=== PATIENT | male | born 2005 | race Caucasian/White ===

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

== ENCOUNTER 2023-02-24 17:28 | Emergency (ER) | payer OTHER ==
--- NOTE | 2023-02-24 18:49 | ED ---
ENT HPI - General Source: RN notes reviewed <Chelsea Vargas - Last Filed: 02/24/23 18:49> <Nataly Montoya - Last Filed: 02/24/23 21:51> - General Stated complaint: sore throat Time Seen by Provider: 02/24/23 18:49 - History of Present Illness Initial comments: Patient is a 17-year-old male who presents to the emergency department for sore throat. (Chelsea Vargas) 17-year-old male presenting with chief complaint of shortness of breath. Patient states that he has had a cough, congestion, sore throat, body ache, headache, nausea, and vomiting for the last 3 days. Patient has history of asthma, admits to smoking cigarettes and marijuana. Patient states that he ran out of his albuterol inhaler at home and does not have a nebulizer machine. No chest pain, palpitations, abdominal pain, fever. (Nataly Montoya) - Related Data Home Medications Medication Instructions Recorded Confirmed Ibuprofen [Advil Migraine] 600 mg PO Q12H PRN 04/26/21 04/26/21 Previous Rx's Medication Instructions Recorded Ibuprofen [Motrin] 600 mg PO Q8HR PRN #30 tab 08/31/21 Albuterol Inhaler [Ventolin Hfa 1 - 2 puff INHALATION Q6H PRN #1 02/24/23 Inhaler] each Amoxicillin 500 mg PO Q12HR 10 Days #20 cap 02/24/23 predniSONE 50 mg PO DAILY 5 Days #5 tab 02/24/23 Allergies Allergy/AdvReac Type Severity Reaction Status Date / Time mint Allergy Anaphylaxis Verified 02/24/23 19:12 Review of Systems ROS Other: All systems not noted in ROS Statement are negative. <Chelsea Vargas - Last Filed: 02/24/23 18:49> ROS Other: All systems not noted in ROS Statement are negative. <Nataly Montoya - Last Filed: 02/24/23 21:51> ROS Statement: Those systems with pertinent positive or pertinent negative responses have been documented in the HPI. Past Medical History Past Medical History: Asthma, Seizure Disorder Additional Past Medical History / Comment(s): RSV, Hx of seizure History of Any Multi-Drug Resistant Organisms: None Reported Past Surgical History: No Surgical Hx Reported Past Psychological History: Anxiety, Depression, PTSD Smoking Status: Current every day smoker Past Alcohol Use History: Occasional Past Drug Use History: Marijuana <Chelsea Vargas - Last Filed: 02/24/23 18:49> General Exam <Chelsea Vargas - Last Filed: 02/24/23 18:49> Limitations: no limitations General appearance: alert, in no apparent distress Head exam: Present: atraumatic, normocephalic, normal inspection Eye exam: Present: normal appearance, EOMI. Absent: scleral icterus, periorbital swelling Neck exam: Present: normal inspection, full ROM Respiratory exam: Present: wheezes. Absent: respiratory distress Cardiovascular Exam: Present: regular rate, normal rhythm, normal heart sounds. Absent: systolic murmur, diastolic murmur, rubs, gallop, clicks Neurological exam: Present: alert, oriented X3, CN II-XII intact Psychiatric exam: Present: normal affect, normal mood Skin exam: Present: warm, dry, intact, normal color. Absent: rash <Nataly Montoya - Last Filed: 02/24/23 21:51> - General Exam Comments Initial Comments: Visual Physical Exam Vital signs reviewed General: Well-appearing, nontoxic, no acute distress. Head: Normocephalic, atraumatic Eyes: PERRLA, EOMI ENT: Airway patent Chest: Nonlabored breathing Skin: No visual rash, normal skin tone Neuro: Alert and oriented 3 Musculoskeletal: No gross abnormalities (Chelsea Vargas) Course Vital Signs 02/24/23 02/24/23 02/24/23 19:10 19:56 20:55 Temperature 99.5 F 98.6 F 98.6 F Pulse Rate 80 103 H Respiratory 18 16 Rate Blood Pressure 114/60 133/71 O2 Sat by Pulse 98 94 L Oximetry Medical Decision Making <Nataly Montoya - Last Filed: 02/24/23 21:51> - Medical Decision Making Was pt. sent in by a medical professional or institution (Dr. PA, [facility]SE [facility]ER, urgent care, hospital, or custodial...) When possible be specific @ -No Did you speak to anyone other than the patient for history (EMS, parent, family, police, friend...)? What history was obtained from this source @ -No Did you review nursing and triage notes (agree or disagree)? Why? @ -I reviewed and agree with nursing and triage notes Were old charts reviewed (outside hosp., previous admission, EMS record, old EKG, old radiological studies, urgent care reports/EKG's, custodial records)? Report findings @ -No old charts were reviewed Differential Diagnosis (chest pain, altered mental status, abdominal pain women, abdominal pain men, vaginal bleeding, weakness, fever, dyspnea, syncope, headache, dizziness, GI bleed, back pain, seizure, CVA, palpatations, mental health, musculoskeletal)? @ -Differential includes asthma exacerbation, pneumonia, viral URI, group A strep, this is not an all inclusive list EKG interpreted by me (3pts min.). @ -As above X-rays interpreted by me (1pt min.). @ -Chest x-ray shows no acute process CT interpreted by me (1pt min.). @ -None done U/S interpreted by me (1pt. min.). @ -None done What testing was considered but not performed or refused? (CT, X-rays, U/S, labs)? Why? @ -None What meds were considered but not given or refused? Why? @ -None Did you discuss the management of the patient with other professionals (professionals i.e. , PA, [facility] [employer]ER, lab, RT, psych nurse, director social service, data collector, teacher, loan service officer, case reviewer)? Give summary @ -No Was smoking cessation discussed for >3mins.? @ -No Was critical care preformed (if so, how long)? @ -No Were there social determinants of health that impacted care today? How? (Homelessness, low income, unemployed, alcoholism, drug addiction, transportation, low edu. Level, literacy, decrease access to med. care, [facility], rehab)? @ -No Was there de-escalation of care discussed even if they declined (Discuss DNR or withdrawal of care, Hospice)? DNR status @ -No What co-morbidities impacted this encounter? (DM, HTN, Smoking, COPD, CAD, Cancer, CVA, ARF, Chemo, Hep., AIDS, mental health diagnosis, sleep apnea, morbid obesity)? @ -None Was patient admitted / discharged? Hospital course, mention meds given and route, prescriptions, significant lab abnormalities, going to OR and other pertinent info. @ -17-year-old male presenting with chief complaint of URI like symptoms as well as sore throat. On physical examination diffuse expiratory wheezes are heard on auscultation. Normal posterior pharynx. Chest x-ray shows no acute process. Patient is positive for group A strep. He is negative for influenza, RSV, and Covid. He is treated with Solu-Medrol and albuterol here in the ER. He is signed amoxicillin 500 mg twice a day for 10 days. He is also sent a refill for his albuterol inhaler and a course of prednisone for home. Follow-up with PCP. Report back to ER with any new or worsening symptoms. Discussed return parameters and answered all questions. Patient conveyed verbal understanding and agreed to the plan. I discussed this case in detail with my attending Dr. Vicente Undiagnosed new problem with uncertain prognosis? @ -No Drug Therapy requiring intensive monitoring for toxicity (Heparin, Nitro, Insulin, Cardizem)? @ -No Were any procedures done? @ -No Diagnosis/symptom? @ -Strep pharyngitis and asthma exacerbation Acute, or Chronic, or Acute on Chronic? @ -Acute Uncomplicated (without systemic symptoms) or Complicated (systemic symptoms)? @ -Uncomplicated Side effects of treatment? @ -No Exacerbation, Progression, or Severe Exacerbation? @ -No Poses a threat to life or bodily function? How? (Chest pain, USA, MD, pneumonia, PE, COPD, DKA, ARF, appy, cholecystitis, CVA, Diverticulitis, Homicidal, Suicidal, threat to staff... and all critical care pts) @ -No (Nataly Montoya) - Lab Data Lab Results 02/24/23 02/24/23 Range/Units 19:13 19:13 Influenza Type A (PCR) Not Detected (Not Detectd) Influenza Type B (PCR) Not Detected (Not Detectd) RSV (PCR) Not Detected (Not Detectd) SARS-CoV-2 (PCR) Not Detected (Not Detectd) Group A Strep (PCR) DETECTED A (Not Detectd) Disposition <Chelsea Vargas - Last Filed: 02/24/23 18:49> Is patient prescribed a controlled substance at d/c from ED?: No Time of Disposition: 20:50 <Nataly Montoya - Last Filed: 02/24/23 21:51> Clinical Impression: Strep pharyngitis, Asthma exacerbation Disposition: HOME SELF-CARE Condition: Good Instructions (If sedation given, give patient instructions): Asthma (ED), Strep Throat (ED) Additional Instructions: Follow-up with PCP. Report back to ER with any new or worsening symptoms. Take medication as prescribed. Prescriptions: Amoxicillin 500 mg PO Q12HR 10 Days #20 cap predniSONE 50 mg PO DAILY 5 Days #5 tab Albuterol Inhaler [Ventolin Hfa Inhaler] 1 - 2 puff INHALATION Q6H PRN #1 each PRN Reason: Shortness Of Breath Referrals: Tavia Church DO [Primary Care Provider] - 1-2 days
[2023-02-24] MEDS ORDERED: ALBUTEROL HFA INHALER INHALATION STA (19:35)
[2023-02-24] MEDS ORDERED: methylPREDNISolone SOD SUCCI 125 MG/2 ML VIAL IM ONE (19:35)
--- NOTE | 2023-02-24 19:44 | XR ---
EXAMINATION TYPE: XR chest 2V DATE OF EXAM: 02/24/2023 7:21 PM COMPARISON: Chest radiographs from 08/17/2022 TECHNIQUE: XR chest 2V Frontal and lateral views of the chest. CLINICAL INDICATION:Male, 17 years old with history of Cough; FINDINGS: Lungs/Pleura: There is no evidence of pleural effusion, focal consolidation, or pneumothorax. Pulmonary vascularity: Unremarkable. Heart/mediastinum: Cardiomediastinal silhouette is unremarkable. Musculoskeletal: No acute osseous pathology. IMPRESSION: No acute cardiopulmonary disease/process.
[2023-02-24 19:58] VITALS: TEMP 98.6
[2023-02-24 21:02] VITALS: BP 133/71; PULSE 103; RESP 16
== END 2023-02-24 21:02 | disposition home or self-care (01) ==
LOC: EC 17:28
DX: J02.0 Streptococcal pharyngitis (principal); B95.0 Streptococcus, group A, as the cause of diseases classified elsewhere; J45.901 Unspecified asthma with (acute) exacerbation; Z86.59 Personal history of other mental and behavioral disorders; F17.200 Nicotine dependence, unspecified, uncomplicated; F12.90 Cannabis use, unspecified, uncomplicated; Z91.018 Allergy to other foods; Z20.822 Contact with and (suspected) exposure to COVID-19
CPT/HCPCS: 94640; 87651; 87636; 71046; 99283; 96372; J2930

== ENCOUNTER 2023-02-25 20:26 | Emergency (ER) | payer OTHER ==
[2023-02-25 21:21] VITALS: TEMP 98.9
[2023-02-25] MEDS ORDERED: SODIUM CHLORIDE 0.9% 1,000 ML IV STA (22:08)
[2023-02-25] MEDS ORDERED: ONDANSETRON 4 MG/2 ML VIAL IVP STA (22:08)
[2023-02-25] MEDS ORDERED: IPRATROPIUM-ALBUTEROL 3 ML NEB INHALATION STA (22:09)
[2023-02-25 22:49] LABS: Basophils % (A) 0 %; Eosinophils # (A) 0.1 k/uL (0-0.7); Eosinophils % (A) 1 %; HCT 49.3 % (39.0-53.0); HGB 17.4 gm/dL (13.0-17.5); Lymphocytes # (A) 2.4 k/uL (1.0-4.8); Lymphocytes % (A) 14 %; MCH 30.5 pg (25.0-35.0); MCHC 35.2 g/dL (31.0-37.0); MCV 86.7 fL (80.0-100.0); Mean Platelet Volume 7.5; Monocytes # (A) 0.8 k/uL (0-1.0); Monocytes % (A) 5 %; Neutrophils # (A) 13.3 k/uL (1.3-7.7); Neutrophils % (A) 80 %; Platelet Count 230 k/uL (150-450); RBC 5.69 m/uL (4.30-5.90); RDW 12.3 % (11.5-15.5); WBC 16.7 k/uL (4.0-11.0)
[2023-02-25 22:57] LABS: INR 1.1 (<1.2); Partial Thromboplastin Time 23.5 sec (22.0-30.0); Prothrombin Time 11.3 sec (9.0-12.0)
[2023-02-25 23:08] LABS: ALT 29 U/L (4-49); AST 36 U/L (17-59); African American GFR (CKD) >90 (>60 ml/min/1.73 sqM); Albumin 4.9 g/dL (3.5-5.0); Alkaline Phosphatase 61 U/L (38-126); Anion Gap 15 mmol/L; Blood Urea Nitrogen 15 mg/dL (9-20); Calcium 9.3 mg/dL (8.4-10.2); Carbon Dioxide 22 mmol/L (22-30); Chloride 102 mmol/L (98-107); Glucose 128 mg/dL (74-99); Lipase 73 U/L (23-300); Non-African American GFR(CKD) >90 (>60 ml/min/1.73 sqM); Potassium 3.3 mmol/L (3.5-5.1); Sodium 139 mmol/L (137-145); Total Bilirubin 0.8 mg/dL (0.2-1.3); Total Protein 7.9 g/dL (6.3-8.2)
[2023-02-26] MEDS ORDERED: IPRATROPIUM-ALBUTEROL 3 ML NEB INHALATION STA (00:04)
--- NOTE | 2023-02-26 01:03 | ED ---
ENT HPI - General Chief complaint: ENT Stated complaint: vomiting blood/+strep throat Time Seen by Provider: 02/25/23 21:56 Source: patient Mode of arrival: wheelchair Limitations: no limitations - History of Present Illness Initial comments: Patient is a 17-year-old male presenting with chief complaint of one episode of blood-streaked emesis that occurred this evening. Patient was evaluated here yesterday and diagnosed with group A strep. He was started on amoxicillin. Patient has been experiencing nausea and vomiting. This evening during an episode of vomiting patient noted blood streaks. He has not had another episode of hematemesis since. Patient has history of asthma, currently getting treatment for an asthma exacerbation. He is taking his albuterol inhaler at home and on prednisone 50 mg daily. No chest pain, abdominal pain, dizziness, palpitations, numbness, tingling, weakness. - Related Data Home Medications Medication Instructions Recorded Confirmed Ibuprofen [Advil Migraine] 600 mg PO Q12H PRN 04/26/21 04/26/21 Previous Rx's Medication Instructions Recorded Ibuprofen [Motrin] 600 mg PO Q8HR PRN #30 tab 08/31/21 Albuterol Inhaler [Ventolin Hfa 1 - 2 puff INHALATION Q6H PRN #1 02/24/23 Inhaler] each Amoxicillin 500 mg PO Q12HR 10 Days #20 cap 02/24/23 predniSONE 50 mg PO DAILY 5 Days #5 tab 02/24/23 Ondansetron Odt [Zofran Odt] 4 mg PO Q8HR PRN #15 tab 02/26/23 Allergies Allergy/AdvReac Type Severity Reaction Status Date / Time mint Allergy Anaphylaxis Verified 02/24/23 19:12 Review of Systems ROS Statement: Those systems with pertinent positive or pertinent negative responses have been documented in the HPI. ROS Other: All systems not noted in ROS Statement are negative. Past Medical History Past Medical History: Asthma, Seizure Disorder Additional Past Medical History / Comment(s): RSV, Hx of seizure History of Any Multi-Drug Resistant Organisms: None Reported Past Surgical History: No Surgical Hx Reported Past Psychological History: Anxiety, Depression, PTSD Smoking Status: Current every day smoker Past Alcohol Use History: Occasional Past Drug Use History: Marijuana General Exam Limitations: no limitations General appearance: alert, in no apparent distress Head exam: Present: atraumatic, normocephalic, normal inspection Eye exam: Present: normal appearance, EOMI. Absent: scleral icterus, periorbital swelling ENT exam: Present: normal exam, normal oropharynx, mucous membranes moist Neck exam: Present: normal inspection, full ROM Respiratory exam: Present: wheezes. Absent: respiratory distress, accessory muscle use Cardiovascular Exam: Present: regular rate, normal rhythm, normal heart sounds. Absent: systolic murmur, diastolic murmur, rubs, gallop, clicks GI/Abdominal exam: Present: soft. Absent: distended, tenderness, guarding, rebound, rigid Neurological exam: Present: alert, oriented X3, CN II-XII intact Psychiatric exam: Present: normal affect, normal mood Skin exam: Present: warm, dry, intact, normal color. Absent: rash Course Vital Signs 02/25/23 02/25/23 02/25/23 21:17 22:47 22:54 Temperature 98.9 F Pulse Rate 120 H 100 100 Respiratory 20 Rate Blood Pressure 120/67 O2 Sat by Pulse 96 Oximetry 02/26/23 02/26/23 02/26/23 00:42 00:54 01:07 Temperature Pulse Rate 104 H 100 110 H Respiratory 18 Rate Blood Pressure 100/89 O2 Sat by Pulse 99 Oximetry Medical Decision Making - Medical Decision Making Was pt. sent in by a medical professional or institution (SUMIT Saunders, CLIENT EXECUTIVE, urgent care, hospital, or assisted...) When possible be specific @ -No Did you speak to anyone other than the patient for history (EMS, parent, family, police, friend...)? What history was obtained from this source @ -No Did you review nursing and triage notes (agree or disagree)? Why? @ -I reviewed and agree with nursing and triage notes Were old charts reviewed (outside hosp., previous admission, EMS record, old EKG, old radiological studies, urgent care reports/EKG's, assisted records)? Report findings @ -No old charts were reviewed Differential Diagnosis (chest pain, altered mental status, abdominal pain women, abdominal pain men, vaginal bleeding, weakness, fever, dyspnea, syncope, headache, dizziness, GI bleed, back pain, seizure, CVA, palpatations, mental health, musculoskeletal)? @ -MDM Differential GI Bleed: Esophageal varices, aortoenteric fistula, Constance-Lind, gastritis, peptic ulcer disease, diverticulosis, inflammatory bowel disease, hemorrhoids, fissure, colitis, malignancy, Meckels diverticulum this is not meant to be an all- inclusive list. EKG interpreted by me (3pts min.). @ -Sinus tachycardia ventricular rate 119. WA interval 108. QRS 97. QT 317. QTc 388. X-rays interpreted by me (1pt min.). @ -None done CT interpreted by me (1pt min.). @ -None done U/S interpreted by me (1pt. min.). @ -None done What testing was considered but not performed or refused? (CT, X-rays, U/S, labs)? Why? @ -None What meds were considered but not given or refused? Why? @ -None Did you discuss the management of the patient with other professionals (professionals i.e. , PA, CLIENT EXECUTIVE, lab, RT, psych nurse, social science research assistant, panelbeater, te acher, biological technical officer, manager of case)? Give summary @ -No Was smoking cessation discussed for >3mins.? @ -No Was critical care preformed (if so, how long)? @ -No Were there social determinants of health that impacted care today? How? (Homelessness, low income, unemployed, alcoholism, drug addiction, transportation, low edu. Level, literacy, decrease access to med. care, long-term, rehab)? @ -No Was there de-escalation of care discussed even if they declined (Discuss DNR or withdrawal of care, Hospice)? DNR status @ -No What co-morbidities impacted this encounter? (DM, HTN, Smoking, COPD, CAD, Cancer, CVA, ARF, Chemo, Hep., AIDS, mental health diagnosis, sleep apnea, morbid obesity)? @ -None Was patient admitted / discharged? Hospital course, mention meds given and rou te, prescriptions, significant lab abnormalities, going to OR and other pertinent info. @ -17-year-old male presenting with chief complaint of one episode of hematemesis this evening. Patient was diagnosed with strep throat here in our ER yesterday and is being treated with amoxicillin. He also being treated for asthma exacerbation with prednisone 50 mg daily and albuterol inhaler. Physical examination shows diffuse expiratory wheezes on auscultation, normal posterior pharynx and normal abdominal exam. Lab work shows WBC 16.7, Likely due to recurrent group A strep infection as well as vomiting. hemoglobin 17.4. Potassium 3.3. Glucose 128. Lactic acid 2.3, likely due to vomiting. Negative d-dimer. Patient received 2 DuoNeb treatments. On reassessment he reports improvement in his shortness of breath. 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 Patient is educated on today's findings. He is provided with a prescription for Zofran and instructed to continue his other medications at home. Follow-up with PCP. Report back to ER with any new or worsening symptoms. Discussed return parameters and answered all questions. Patient conveyed verbal understanding and agreed to the plan. I discussed this case in detail with my attending Dr. Reddy Undiagnosed new problem with uncertain prognosis? @ -No Drug Therapy requiring intensive monitoring for toxicity (Heparin, Nitro, Insulin, Cardizem)? @ -No Were any procedures done? @ -No Diagnosis/symptom? @ -Constance-Lind tear Acute, or Chronic, or Acute on Chronic? @ -Acute Uncomplicated (without systemic symptoms) or Complicated (systemic symptoms)? @ -Uncomplicated Side effects of treatment? @ -No Exacerbation, Progression, or Severe Exacerbation? @ -No Poses a threat to life or bodily function? How? (Chest pain, [place], [place], pneumonia, PE, COPD, DKA, ARF, appy, cholecystitis, CVA, Diverticulitis, Homicidal, Suicidal, threat to staff... and all critical care pts) @ -Low likelihood - Lab Data Result diagrams: 02/25/23 22:29 02/25/23 22:29 Lab Results 02/25/23 02/25/23 02/25/23 Range/Units 22:29 22:29 22:29 WBC 16.7 H (4.0-11.0) k/uL RBC 5.69 (4.30-5.90) m/uL Hgb 17.4 (13.0-17.5) gm/dL Hct 49.3 (39.0-53.0) % MCV 86.7 (80.0-100.0) fL MCH 30.5 (25.0-35.0) pg MCHC 35.2 (31.0-37.0) g/dL RDW 12.3 (11.5-15.5) % Plt Count 230 (150-450) k/uL MPV 7.5 Neutrophils % 80 % Lymphocytes % 14 % Monocytes % 5 % Eosinophils % 1 % Basophils % 0 % Neutrophils # 13.3 H (1.3-7.7) k/uL Lymphocytes # 2.4 (1.0-4.8) k/uL Monocytes # 0.8 (0-1.0) k/uL Eosinophils # 0.1 (0-0.7) k/uL Basophils # 0.0 (0-0.2) k/uL PT 11.3 (9.0-12.0) sec INR 1.1 (<1.2) APTT 23.5 (22.0-30.0) sec D-Dimer (<0.60) mg/L FEU Sodium 139 (137-145) mmol/L Potassium 3.3 L (3.5-5.1) mmol/L Chloride 102 (98-107) mmol/L Carbon Dioxide 22 (22-30) mmol/L Anion Gap 15 mmol/L BUN 15 (9-20) mg/dL Creatinine 0.79 (0.66-1.25) mg/dL Est GFR (CKD-EPI)AfAm >90 (>60 ml/min/1.73 sqM) Est GFR (CKD-EPI)NonAf >90 (>60 ml/min/1.73 sqM) Glucose 128 H (74-99) mg/dL Lactic Ac Sepsis Rflx Plasma Lactic Acid Remy (0.7-2.0) mmol/L Calcium 9.3 (8.4-10.2) mg/dL Total Bilirubin 0.8 (0.2-1.3) mg/dL AST 36 (17-59) U/L ALT 29 (4-49) U/L Alkaline Phosphatase 61 (38-126) U/L Total Protein 7.9 (6.3-8.2) g/dL Albumin 4.9 (3.5-5.0) g/dL Lipase 73 (23-300) U/L 02/25/23 02/25/23 02/25/23 Range/Units 22:29 22:29 23:39 WBC (4.0-11.0) k/uL RBC (4.30-5.90) m/uL Hgb (13.0-17.5) gm/dL Hct (39.0-53.0) % MCV (80.0-100.0) fL MCH (25.0-35.0) pg MCHC (31.0-37.0) g/dL RDW (11.5-15.5) % Plt Count (150-450) k/uL MPV Neutrophils % % Lymphocytes % % Monocytes % % Eosinophils % % Basophils % % Neutrophils # (1.3-7.7) k/uL Lymphocytes # (1.0-4.8) k/uL Monocytes # (0-1.0) k/uL Eosinophils # (0-0.7) k/uL Basophils # (0-0.2) k/uL PT (9.0-12.0) sec INR (<1.2) APTT (22.0-30.0) sec D-Dimer 0.21 (<0.60) mg/L FEU Sodium (137-145) mmol/L Potassium (3.5-5.1) mmol/L Chloride (98-107) mmol/L Carbon Dioxide (22-30) mmol/L Anion Gap mmol/L BUN (9-20) mg/dL Creatinine (0.66-1.25) mg/dL Est GFR (CKD-EPI)AfAm (>60 ml/min/1.73 sqM) Est GFR (CKD-EPI)NonAf (>60 ml/min/1.73 sqM) Glucose (74-99) mg/dL Lactic Ac Sepsis Rflx Y Plasma Lactic Acid Remy 2.3 H* (0.7-2.0) mmol/L Calcium (8.4-10.2) mg/dL Total Bilirubin (0.2-1.3) mg/dL AST (17-59) U/L ALT (4-49) U/L Alkaline Phosphatase (38-126) U/L Total Protein (6.3-8.2) g/dL Albumin (3.5-5.0) g/dL Lipase (23-300) U/L Disposition Clinical Impression: Strep pharyngitis, Constance-Lind tear Disposition: HOME SELF-CARE Condition: Good Instructions (If sedation given, give patient instructions): Strep Throat (ED), Hematemesis (ED), Constance-Lind Syndrome (ED) Additional Instructions: Follow-up with PCP. Report back to ER with any new or worsening symptoms. Continue taking medications as prescribed. Prescriptions: Ondansetron Odt [Zofran Odt] 4 mg PO Q8HR PRN #15 tab PRN Reason: Nausea Is patient prescribed a controlled substance at d/c from ED?: No Referrals: Tavia Church DO [Primary Care Provider] - 1-2 days Time of Disposition: 01:03
[2023-02-26 01:12] VITALS: BP 100/89; PULSE 110; RESP 18
== END 2023-02-26 01:11 | disposition home or self-care (01) ==
LOC: EC 20:26
DX: J02.0 Streptococcal pharyngitis (principal); K22.6 Gastro-esophageal laceration-hemorrhage syndrome; J45.909 Unspecified asthma, uncomplicated; F17.200 Nicotine dependence, unspecified, uncomplicated; F12.90 Cannabis use, unspecified, uncomplicated; Z91.018 Allergy to other foods; Z86.59 Personal history of other mental and behavioral disorders
CPT/HCPCS: 99283 ×2; 96374 ×2; 96361 ×2; 36415; 94640 ×2; 93005; 85379; 80053; 83605; 83690; 85025; 85610; 85730; J2405

== ENCOUNTER 2024-09-18 18:40 | Emergency (ER) | payer OTHER ==
[2024-09-18 19:01] VITALS: TEMP 99.1
--- NOTE | 2024-09-18 19:03 | ED ---
URI HPI - General Chief Complaint: Upper Respiratory Infection Stated Complaint: DANII Time Seen by Provider: 09/18/24 19:02 Source: patient, RN notes reviewed Mode of arrival: ambulatory Limitations: no limitations - History of Present Illness Initial Comments: This is a 19-year-old male with history of asthma presenting to emergency department for complaint of sore throat, cough, difficulty breathing over the past few days. Denies fevers, chills, nausea, vomiting, abdominal pain, headaches, chest pain. He denies recent prolonged travel, recent surgeries, history of DVT or PE. Patient states that he generally has a inhaler however has been unable to fill this medication. - Related Data Home Medications Medication Instructions Recorded Confirmed Ibuprofen [Advil Migraine] 600 mg PO Q12H PRN 04/26/21 04/26/21 Previous Rx's Medication Instructions Recorded Ibuprofen [Motrin] 600 mg PO Q8HR PRN #30 tab 08/31/21 Albuterol Inhaler [Ventolin Hfa 1 - 2 puff INHALATION Q6H PRN #1 02/24/23 Inhaler] each Amoxicillin 500 mg PO Q12HR 10 Days #20 cap 02/24/23 predniSONE 50 mg PO DAILY 5 Days #5 tab 02/24/23 Ondansetron Odt [Zofran Odt] 4 mg PO Q8HR PRN #15 tab 02/26/23 Albuterol Inhaler [Ventolin Hfa 1 - 2 puff INHALATION Q6H PRN #1 09/18/24 Inhaler] each Amoxicillin 875 mg PO Q12HR #20 tablet 09/18/24 Allergies Allergy/AdvReac Type Severity Reaction Status Date / Time No Known Allergies Allergy Verified 09/18/24 19:01 Review of Systems ROS Statement: Those systems with pertinent positive or pertinent negative responses have been documented in the HPI. ROS Other: All systems not noted in ROS Statement are negative. Past Medical History Past Medical History: Asthma, Seizure Disorder Additional Past Medical History / Comment(s): RSV, Hx of seizure History of Any Multi-Drug Resistant Organisms: None Reported Past Surgical History: No Surgical Hx Reported Past Psychological History: Anxiety, Depression, PTSD Smoking Status: Current every day smoker Past Alcohol Use History: Occasional Past Drug Use History: Marijuana General Exam Limitations: no limitations General appearance: alert, in no apparent distress ENT exam: Present: normal exam, mucous membranes moist Expanded Throat exam: tonsillar erythema, tonsillomegaly Neck exam: Present: normal inspection. Absent: tenderness, meningismus, lymphadenopathy Respiratory exam: Present: normal lung sounds bilaterally. Absent: respiratory distress, wheezes, rales, rhonchi, stridor Cardiovascular Exam: Present: regular rate, normal rhythm, normal heart sounds. Absent: systolic murmur, diastolic murmur, rubs, gallop, clicks GI/Abdominal exam: Present: soft, normal bowel sounds. Absent: distended, tenderness, guarding, rebound, rigid Back exam: Present: normal inspection Course Vital Signs 09/18/24 09/18/24 09/18/24 18:58 20:09 20:21 Temperature 99.1 F Pulse Rate 98 89 83 Respiratory 16 Rate Blood Pressure 117/75 O2 Sat by Pulse 98 Oximetry Medical Decision Making - Medical Decision Making Was pt. sent in by a medical professional or institution (, PA, JANITORIAL ACCOUNT MANAGER, urgent care, hospital, or prison...) When possible be specific @ -No Did you speak to anyone other than the patient for history (EMS, parent, family, police, friend...)? What history was obtained from this source @ -No Did you review nursing and triage notes (agree or disagree)? Why? @ -I reviewed and agree with nursing and triage notes Were old charts reviewed (outside hosp., previous admission, EMS record, old EKG, old radiological studies, urgent care reports/EKG's, prison records)? Report findings @ -No old charts were reviewed Differential Diagnosis (chest pain, altered mental status, abdominal pain women, abdominal pain men, vaginal bleeding, weakness, fever, dyspnea, syncope, headache, dizziness, GI bleed, back pain, seizure, CVA, palpatations, mental health, musculoskeletal)? @ -COVID 19, RSV, influenza, pneumonia, acute bronchitis, URI, this list is not all inclusive EKG interpreted by me (3pts min.). @ -none X-rays interpreted by me (1pt min.). @ -Chest x-ray no acute process CT interpreted by me (1pt min.). @ -None done U/S interpreted by me (1pt. min.). @ -None done What testing was considered but not performed or refused? (CT, X-rays, U/S, labs)? Why? @ -None What meds were considered but not given or refused? Why? @ -None Did you discuss the management of the patient with other professionals (professionals i.e. , PA, JANITORIAL ACCOUNT MANAGER, lab, RT, psych nurse, social media developer, vessel specialist, teacher, navy airspace officer, telehealth case manager)? Give summary @ -No Was smoking cessation discussed for >3mins.? @ -No Was critical care preformed (if so, how long)? @ -No Were there social determinants of health that impacted care today? How? (Homelessness, low income, unemployed, alcoholism, drug addiction, transportation, low edu. Level, literacy, decrease access to med. care, usp, rehab)? @ -No Was there de-escalation of care discussed even if they declined (Discuss DNR or withdrawal of care, Hospice)? DNR status @ -No What co-morbidities impacted this encounter? (DM, HTN, Smoking, COPD, CAD, Cancer, CVA, ARF, Chemo, Hep., AIDS, mental health diagnosis, sleep apnea, morbid obesity)? @ -None Was patient admitted / discharged? Hospital course, mention meds given and route, prescriptions, significant lab abnormalities, going to OR and other pertinent info. @ -Discharge. 19-year-old male presenting with sore throat, cough, shortness of breath. Patient's vitals are stable. Is noted to have mild wheezing of bilateral lung elizabeth. Patient is provided with Solu-Medrol and DuoNeb treatment and will undergo viral testing, strep testing, chest x-ray. Chest x- ray is unremarkable. Patient is tested positive for influenza A and strep pharyngitis. Patient is better with outpatient prescription for amoxicillin and refill of his albuterol inhaler instructed to continue Tylenol Motrin as needed for fevers and bodyaches/fatigue. Discussed with Dr. Trevizo Undiagnosed new problem with uncertain prognosis? @ -No Drug Therapy requiring intensive monitoring for toxicity (Heparin, Nitro, Insulin, Cardizem)? @ -No Were any procedures done? @ -No Diagnosis/symptom? @ -Influenza A, strep pharyngitis Acute, or Chronic, or Acute on Chronic? @ -Acute Uncomplicated (without systemic symptoms) or Complicated (systemic symptoms)? @ -Uncomplicated Side effects of treatment? @ -No Exacerbation, Progression, or Severe Exacerbation? @ -No Poses a threat to life or bodily function? How? (Chest pain, [place], [place], pneumonia, PE, COPD, DKA, ARF, appy, cholecystitis, CVA, Diverticulitis, Homicidal, Temitope cidal, threat to staff... and all critical care pts) @ -No - Lab Data Lab Results 09/18/24 09/18/24 Range/Units 19:24 19:24 Influenza Type A (PCR) Detected A (Not Detectd) Influenza Type B (PCR) Not Detected (Not Detectd) RSV (PCR) Not Detected (Not Detectd) SARS-CoV-2 (PCR) Not Detected (Not Detectd) Group A Strep (PCR) DETECTED A (Not Detectd) Disposition Clinical Impression: Strep pharyngitis, Influenza A Disposition: HOME SELF-CARE Condition: Good Instructions (If sedation given, give patient instructions): Strep Throat in Children (ED) Additional Instructions: Please return to the Emergency Department if symptoms worsen or any other concerns. Prescriptions: Amoxicillin 875 mg PO Q12HR #20 tablet Albuterol Inhaler [Ventolin Hfa Inhaler] 1 - 2 puff INHALATION Q6H PRN #1 each PRN Reason: Shortness Of Breath Is patient prescribed a controlled substance at d/c from ED?: No Referrals: Tavia Church DO [Primary Care Provider] - 1-2 days Time of Disposition: 20:53
--- NOTE | 2024-09-18 19:41 | XR ---
EXAMINATION TYPE: XR chest 2V DATE OF EXAM: 09/18/2024 7:37 PM COMPARISON: Previous chest 02/24/2023. CLINICAL INDICATION: Male, 19 years old with history of SOB, productive cough; H TECHNIQUE: XR chest 2V Frontal and lateral views of the chest. FINDINGS: Lungs/Pleura: There is no evidence of pleural effusion, focal consolidation, or pneumothorax. Pulmonary vascularity: Unremarkable. Heart/mediastinum: Cardiomediastinal silhouette is unremarkable. Musculoskeletal: No acute osseous pathology. Other findings: None IMPRESSION: No acute cardiopulmonary disease/process. [facility] Yennifer Walton, , 09/18/2024 7:39 PM
[2024-09-18] MEDS: methylPREDNISolone SOD SUCCI 125 MG/2 ML VIAL IM ONE (19:57)
[2024-09-18] MEDS: IPRATROPIUM-ALBUTEROL 3 ML NEB INHALATION STA (20:08)
[2024-09-18] MEDS: AMOXICILLIN 875 MG TAB PO STA (21:03)
[2024-09-18 21:06] VITALS: BP 115/77; PULSE 106; RESP 18
== END 2024-09-18 21:06 | disposition home or self-care (01) ==
LOC: EC 18:40
DX: J02.0 Streptococcal pharyngitis (principal); B95.0 Streptococcus, group A, as the cause of diseases classified elsewhere; J10.1 Influenza due to other identified influenza virus with other respiratory manifestations; F17.200 Nicotine dependence, unspecified, uncomplicated
CPT/HCPCS: 96372 ×2; 99284 ×2; 94640; 87651; 87636; 71046; J2919